=== PATIENT | male | born 1975 | race Caucasian/White ===

== ENCOUNTER 2022-09-29 00:36 | Emergency (ER) | payer SELFPAY ==
[~2022-09-29] VITALS: Ht 170.2 cm; Wt 72.6 kg
[2022-09-29 00:43] VITALS: BP 124/78
[2022-09-29 01:04] VITALS: BP 124/78
== END 2022-09-29 01:04 ==
LOC: MED 00:36
DX: R07.9 Chest pain, unspecified (principal); V49.88XA Car occupant (driver) (passenger) injured in other specified transport accidents, initial encounter; Y93.89 Activity, other specified; Y92.89 Other specified places as the place of occurrence of the external cause; Y99.8 Other external cause status
CPT/HCPCS: 71045; 99283